=== PATIENT | male | born 1985 | race Caucasian/White ===

== ENCOUNTER 2018-09-16 10:50 | Outpatient (CLI) | payer OTHER ==
[~2018-09-16] VITALS: Ht 167.6 cm; Wt 96.4 kg
[2018-09-16 11:30] VITALS: BP 138/91; PULSE 65; TEMP 97.7
[2018-09-16] MEDS ORDERED: ZYRTEC 10MG10 MG PO (11:33)
[2018-09-16] MEDS ORDERED: PRILOSEC 20MG20 MG PO (11:33)
[2018-09-16] MEDS ORDERED: RT ADVAIR 228 DISKUS IH (11:34)
[2018-09-16] MEDS ORDERED: SPIRIVA RE2.5 MCG/Ac IH (11:34)
[2018-09-16] MEDS ORDERED: FLEXERIL 1010 MG/TAB PO (11:34)
--- NOTE | 2018-09-16 12:04 | NUR ---
Reorder paperwork for Nucala given to pt/
== END 2018-09-16 12:04 | disposition home or self-care (01) ==
LOC: EUO 10:50
DX: J45.40 Moderate persistent asthma, uncomplicated (principal); Z79.899 Other long term (current) drug therapy

== ENCOUNTER 2018-10-15 13:43 | Outpatient (CLI) | payer OTHER ==
[~2018-10-15] VITALS: Ht 167.6 cm; Wt 97.0 kg
[~2018-10-15 13:43] MED LIST: FLEXERIL 1010 MG/TAB PO; PRILOSEC 20MG20 MG PO; RT ADVAIR 228 DISKUS IH; SPIRIVA RE2.5 MCG/Ac IH; ZYRTEC 10MG10 MG PO
[2018-10-15] MEDS ORDERED: NUCALA100 MG SQ (14:36)
[2018-10-15 14:52] VITALS: BP 127/81; PULSE 60; TEMP 98
== END 2018-10-15 15:00 | disposition home or self-care (01) ==
LOC: EUO 13:43
DX: J45.40 Moderate persistent asthma, uncomplicated (principal); Z79.899 Other long term (current) drug therapy

== ENCOUNTER 2018-11-22 14:56 | Outpatient (CLI) | payer OTHER ==
[~2018-11-22] VITALS: Ht 167.6 cm; Wt 95.5 kg
[~2018-11-22 14:56] MED LIST changes: +NUCALA100 MG SQ
[2018-11-22 15:40] VITALS: BP 144/91; PULSE 72; TEMP 97.8
== END 2018-11-22 17:00 | disposition home or self-care (01) ==
LOC: EUO 14:56
DX: J45.40 Moderate persistent asthma, uncomplicated (principal); Z79.899 Other long term (current) drug therapy